=== PATIENT | male | born 1950 | race African-American/Black ===

== ENCOUNTER 2017-12-28 09:07 | Outpatient (CLI) | payer MEDICARE, MEDICAID ==
--- NOTE | 2017-12-28 13:12 | MRI ---
MRI LUMBAR SPINE WITHOUT CONTRAST: Comparison: None. History: Chronic back pain, bilateral leg pain for a long time. Technique: Multiplanar, multisequence MRI images were obtained of the lumbar spine without contrast. FINDINGS: The vertebral bodies demonstrate normal height and alignment without fracture or subluxation. Endplat e degenerative changes are seen surrounding the L5-S1 intervertebral disc. This disc is desiccated an d decreased in height. The other discs are well hydrated and normal in height. The conus medullaris terminates normally at L1. The prevertebral and paraspinal soft tissues are unre markable. T12-L1 through L3-4: Unremarkable. L4-5: No significant disc bulge or occlusion. Moderate bilateral posterior facet arthrosis. No centra l canal stenosis. Mild bilateral neural foraminal stenosis. L5-S1: A large disc osteophyte complex is seen. Mild bilateral posterior facet arthrosis. Moderate ce ntral canal stenosis. Severe bilateral neural foraminal stenosis. IMPRESSION: Degenerative changes of the lower lumbosacral spine as above. POS: [facility]
== END 2017-12-28 09:08 | disposition home or self-care (01) ==
LOC: MRI 09:07
PROVIDERS: ATTEND Family Medicine
DX: M54.9 Dorsalgia, unspecified (principal); M47.897 Other spondylosis, lumbosacral region
CPT/HCPCS: 72148

== ENCOUNTER 2019-07-14 16:14 | Inpatient (IN) | payer MEDICARE, OTHER ==
[~2019-07-14 16:14] MED LIST: Lidocaine 1% PF 5 ML VIAL ONE; PHENYLEPHRINE-NS 100 MCG/ML 10 ML SYRINGE ONE; PROPOFOL 200 MG/20 ML VIAL ONE; Rocuronium Bromide 10 MG/ML (10ML VIAL) ONE; Succinylcholine Chloride 20 MG/ML 10 ml SYRINGE FS ONE; Vecuronium 10 MG VIAL ONE
[2019-07-14] MEDS ORDERED: Morphine 4 MG/ML VIAL ONE (16:49)
[2019-07-14] MEDS ORDERED: Ondansetron PF 4 MG/2 ML Vial ONE (16:57)
[2019-07-14] MEDS ORDERED: Midazolam HCl 5 mg/ml Vial ONE (17:16)
[2019-07-14] MEDS ORDERED: Midazolam HCl 2 mg/2 ml Vial ONE ×3 (17:17→23:44)
[2019-07-14 18:36] LABS: INR-International Normal Ratio 1.1; PTT 30.9 SEC (22.9-36.1); Prothrombin Time 13.8 SEC (12.0-14.7)
[2019-07-14] MEDS ORDERED: Fentanyl 100 MCG/2 ML VIAL ONE (18:48)
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
[2019-07-14] MEDS ORDERED: Sodium Chloride 0.9% 100 ML ONE (19:13)
[2019-07-14] MEDS ORDERED: cefOXitin 2 GM VIAL ONE (19:13)
[2019-07-15] MEDS ORDERED: Dextrose 5% in Water 1,000 ML IV PRN (00:24)
[2019-07-15] MEDS ORDERED: Ondansetron PF 4 MG/2 ML Vial IVP PRN (00:24)
[2019-07-15] MEDS ORDERED: HumaLOG 300 UNITS/3 ML VIAL SC PRN (00:24)
[2019-07-15] MEDS ORDERED: Dextrose 50% Abboject 50 ML SYRINGE SLOW IVP PRN (00:24)
[2019-07-15] MEDS ORDERED: Ventilator Sedation Protocol 1 EACH FS ONE (00:30)
[2019-07-15] MEDS ORDERED: Propofol 1,000 MG/100 ML VIAL IV ONE (00:31)
[2019-07-15] MEDS ORDERED: Propofol BOLUS 1,000 MG/100 ML VIAL IV PRN (00:33)
[2019-07-15] MEDS ORDERED: Lorazepam 2 MG/ML VIAL SLOW IVP PRN (00:33)
[2019-07-15] MEDS ORDERED: Fentanyl BOLUS 250 ML IVPB PRN (00:33)
[2019-07-15] MEDS ORDERED: Morphine 2 MG/ML SYRINGE SLOW IVP PRN (00:33)
[2019-07-15] MEDS ORDERED: DISCONTINUE PREVIOUS NARCOTIC PAIN MEDICATIONS AND BENZODIAZEPINES FS SCH (00:33)
[2019-07-15 00:36] LABS: Actual Bicarbonate (HCO3a) 24.7 mEq/L (22-28); Base Excess (BEa) 0.4 mEq/L (-2.0 to +3.0); CO2 Tension 39.2 mmHg (35.0-45.0); Calcium, Ionized 1.07 mmol/L (1.12-1.30); Carboxyhemoglobin (COHb) 1.9 gm% (0.0-3.0); Hemoglobin (Hb) 14.9 g/dL (14.0-18.0); Potassium - ABG Lab 5.25 mmol/L (3.70-5.30); pH, Arterial 7.42 (7.35-7.45)
[2019-07-15 00:38] LABS: Puncture Site LRA
[2019-07-15] MEDS ORDERED: Fentanyl 100 MCG/2 ML VIAL ONE (00:55)
[2019-07-15] MEDS ORDERED: Fentanyl 100 MCG/2 ML VIAL SLOW IVP SCH (01:00)
[2019-07-15] MEDS: fentaNYL Citrate/PF 2,000 MCG in Sodium Chloride 0.9% 60 ML IV SCH ×2 (01:10→17:50)
[2019-07-15] MEDS: Propofol 1,000 MG/100 ML VIAL IV PRN ×4 (01:11→21:26)
[2019-07-15] MEDS: Lactated Ringer's 1,000 ML IV SCH ×3 (01:18→16:30)
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
[2019-07-15 06:11] LABS: Band 24 % (5-11); Hemoglobin 13.4 g/dL (14.0-18.0); Lymphocytes 18 % (21-51); MDiff Complete? YES; Mean Corpuscular HGB CONC 33.9 g/dL (32.0-36.0); Mean Corpuscular Volume 97.4 fL (78.0-98.0); Mean Platelet Volume 7.3 fL (7.4-10.4); Monocytes 11 % (0-10); Neutrophil 47 % (42-75); Platelet Count 185 thou/uL (130-400); Platelet Morphology Comment Appears Adequate; RBC Distribution Width 13.1 % (11.5-14.5); RBC Morphology Normal; Red Blood Cell (RBC) Count 4.06 mill/uL (4.70-6.10)
[2019-07-15 06:12] LABS: Phosphorus 3.7 mg/dL (2.3-4.7)
[2019-07-15 06:13] LABS: Anion Gap 12 mmol/L (10-20); BUN (Urea Nitrogen) 25 mg/dL (8.4-25.7); Calc. Creatinine Clearance 89 mL/min (70-130); Calcium 8.4 mg/dL (7.8-10.44); Carbon Dioxide 23 mmol/L (23-31); Chloride 103 mmol/L (98-107); Estimated GFR-MDRD 68; Glucose 155 mg/dL (80-115); Magnesium 1.6 mg/dL (1.6-2.6); Potassium 4.8 mmol/L (3.5-5.1); Sodium 133 mmol/L (136-145)
[2019-07-15 08:06] LABS: Actual Bicarbonate (HCO3a) 22.4 mEq/L (22-28); Base Excess (BEa) -1.3 mEq/L (-2.0 to +3.0); CO2 Tension 34.4 mmHg (35.0-45.0); Calcium, Ionized 1.03 mmol/L (1.12-1.30); Carboxyhemoglobin (COHb) 1.6 gm% (0.0-3.0); Hemoglobin (Hb) 13.8 g/dL (14.0-18.0); O2 Tension (PaO2) 81.6 mmHg (> 80.0); Potassium - ABG Lab 4.56 mmol/L (3.70-5.30); Puncture Site RRA; pH, Arterial 7.43 (7.35-7.45)
[2019-07-15] MEDS: Enoxaparin Sodium 40 MG/0.4 ML SYRINGE SC SCH (08:43)
--- NOTE | 2019-07-15 08:48 | RAD ---
XR Abdomen 1 View/KUB History: Status post exploratory laparotomy. Comparison: CT prior day Findings: An enteric tube and a weighted feeding tube are both in place with tip near the gastric ant rum. Multiple new left midline surgical torsten. Drains project over the left hemiabdomen. Impression: Both the enteric tube and weighted feeding tube tips project over the gastric antrum.
--- NOTE | 2019-07-15 08:48 | RAD ---
XR Chest 1 View Portable History: Status post exploratory laparotomy Comparison: Radiograph prior day Findings: Patient is intubated with endotracheal tube tip at the level of the clavicles. Lungs are hy poinflated with vascular crowding and scattered atelectasis. No pneumothorax. Heart size is enlarged. Impression: Endotracheal tube tip at the level of the clavicles with scattered atelectatic changes.
[2019-07-15] MEDS: Pantoprazole 40 MG VIAL IVP SCH (09:21)
[2019-07-15] MEDS: cefOXitin 2 GM in Sodium Chloride 0.9% 100 ML IVPB SCH ×2 (09:21→17:58)
--- NOTE | 2019-07-15 16:25 | PRG ---
DATE OF SERVICE: 07/15/2019 SUBJECTIVE: Mr. Urban is a 69-year-old man, who is postoperative day #1, status post exploratory laparotomy, extensive adhesiolysis, and total abdominal wall reconstruction for an incarcerated ventral and incisional hernia with acute small-bowel obstruction. The patient remains on mechanical ventilator support. He required large volume fluid resuscitation yesterday. He is on no vasopressor or inotropic support. Urinary output is improved now to over 60 mL/h. OBJECTIVE: VITAL SIGNS: Blood pressure 122/89, pulse is 108, respiratory rate is 18, temperature is 100.9 degrees Fahrenheit, oxygen saturation is 97% on FiO2 of 40%. HEENT: Pupils are equal, round, and reactive to light bilaterally. HEART: Reveals regular rate with sinus tachycardia. No murmurs or gallops auscultated. LUNGS: Reveal bibasilar rhonchi. Breathing, regular and nonlabored. ABDOMEN: Soft and moderately distended. Incision is intact, clean, and dry. Two subcutaneous Luke-Woodruff drains return scant serous fluid. NEUROLOGIC: Reveals no focal deficits present. LABORATORY FINDINGS: Today include CBC with 7000 white blood cells, hemoglobin and hematocrit of 13.4 and 39.6 respectively. Platelet count is 185,000. Differential counts as follows; 47 segmented neutrophils, 24 bands, 18 lymphocytes, 11 monocytes. Arterial blood gas; pH 7.43, pCO2 is 34.4, PO2 is 82, base excess is -1.3. Metabolic profile; sodium 133, potassium 4.8, chloride is 103, bicarb is 23, BUN 25, creatinine is 1.27, glucose is 155, phosphorus is 3.7, magnesium is 1.6. IMPRESSION: 1. Acute small-bowel obstruction secondary to acute incarcerated ventral incisional hernia postop day #1, status post exploratory laparotomy, extensive adhesiolysis, and total abdominal wall reconstruction. 2. Acute respiratory failure. 3. Acute hypomagnesemia. PLAN: 1. Correct abnormal electrolytes. 2. We will initiate chemical VTE prophylaxis. 3. Continue to wean FiO2 as tolerated. 4. We will maintain the patient, however, mechanical ventilator support as I expect some fluid shifts given the large volume fluid resuscitation yesterday. Above findings and plan discussed with the patient and the same will be communicated to the family upon arrival. TIME SPENT: Total critical care time is 45 minutes. Job ID: [id number]
[2019-07-15] MEDS ORDERED: Prevnar 13-Val Conj/PF 0.5 ML SYRINGE IM ONE (21:00)
--- NOTE | 2019-07-15 23:34 | PRG ---
DATE OF SERVICE: 07/15/2019 SUBJECTIVE: Mr. Urban is 69-year-old man with status post exploratory laparotomy, extensive adhesiolysis, and total abdominal wall reconstruction for incarcerated ventral and incisional hernia with acute small-bowel obstruction. The patient is to remain on mechanical ventilation support. Patient's urine output is marginal, 35 to 40. OBJECTIVE: VITAL SIGNS: Stable except he is tachy most of the time. He got fluid resuscitation and albumin transfusion today. LUNGS: Have scattered rales bilaterally. HEART: Regular rate and rhythm. ABDOMEN: Soft, moderately distended. Incision intact, clean and dry. DONOVAN drain, scant serous fluid. NEUROLOGIC: No focal neurology deficits. PLAN: Will be to continue supportive care. Continue to correct abnormal electrolytes. Continue DVT and gastritis prophylaxis. Job ID: [id number]
[2019-07-16] MEDS: Lactated Ringer's 1,000 ML IV SCH (04:06)
[2019-07-16] MEDS: Propofol 1,000 MG/100 ML VIAL IV PRN ×3 (04:06→17:43)
[2019-07-16 07:59] LABS: Hemoglobin 11.7 g/dL (14.0-18.0); Mean Corpuscular HGB CONC 33.6 g/dL (32.0-36.0); Mean Corpuscular Hemoglobin 32.7 pg (27.0-31.0); Mean Corpuscular Volume 97.2 fL (78.0-98.0); Mean Platelet Volume 7.3 fL (7.4-10.4); Platelet Count 158 thou/uL (130-400); RBC Distribution Width 13.1 % (11.5-14.5); Red Blood Cell (RBC) Count 3.58 mill/uL (4.70-6.10)
[2019-07-16] MEDS: Enoxaparin Sodium 40 MG/0.4 ML SYRINGE SC SCH (08:07)
[2019-07-16] MEDS: Pantoprazole 40 MG VIAL IVP SCH (08:07)
[2019-07-16 08:15] LABS: Anion Gap 13 mmol/L (10-20); BUN (Urea Nitrogen) 30 mg/dL (8.4-25.7); Calc. Creatinine Clearance 71 mL/min (70-130); Calcium 7.9 mg/dL (7.8-10.44); Carbon Dioxide 22 mmol/L (23-31); Chloride 103 mmol/L (98-107); Estimated GFR-MDRD 49; Glucose 128 mg/dL (80-115); Magnesium 1.8 mg/dL (1.6-2.6); Phosphorus 2.8 mg/dL (2.3-4.7); Potassium 4.5 mmol/L (3.5-5.1); Sodium 133 mmol/L (136-145)
[2019-07-16 08:31] LABS: Band 9 % (5-11); Eosinophils 2 % (0-10); Lymphocytes 29 % (21-51); MDiff Complete? YES; Metamyelocyte 2 % (0-0); Monocytes 18 % (0-10); Neutrophil 40 % (42-75); Platelet Morphology Comment Appears Adequate; Vacuoles SLIGHT; White Blood Cell (WBC) Count 9.2 thou/uL (4.8-10.8)
[2019-07-16] MEDS: Sodium Bicarbonate 150 MEQ in Dextrose 5% in Water 1,000 ML IV SCH (09:09)
[2019-07-16] MEDS ORDERED: Sterile Water 10 ML ONE (09:49)
[2019-07-16] MEDS ORDERED: Vecuronium 10 MG VIAL ONE (09:49)
--- NOTE | 2019-07-16 10:23 | RAD ---
EXAM: Portable chest PROVIDED CLINICAL HISTORY: Respiratory insufficiency COMPARISON: 07/15/2019 FINDINGS: Interval placement of left subclavian central line, tip of which projects in the expected location of cavoatrial junction. Cardiac and mediastinal silhouette is unchanged in appearance. Enteric catheter and endotracheal tube are redemonstrated. Bibasilar patchy parenchymal opacities may reflect subsegmental atelectasis or infiltrate. There is no evidence for pneumothorax. IMPRESSION: As above.
[2019-07-16] MEDS: fentaNYL Citrate/PF 2,000 MCG in Sodium Chloride 0.9% 60 ML IV SCH (11:17)
[2019-07-16 11:41] LABS: Actual Bicarbonate (HCO3a) 24.3 mEq/L (22-28); Base Excess (BEa) -0.1 mEq/L (-2.0 to +3.0); CO2 Tension 38.7 mmHg (35.0-45.0); Calcium, Ionized 0.94 mmol/L (1.12-1.30); Carboxyhemoglobin (COHb) 0.8 gm% (0.0-3.0); Hemoglobin (Hb) 11.1 g/dL (14.0-18.0); O2 Tension (PaO2) 65.1 mmHg (> 80.0); Potassium - ABG Lab 4.05 mmol/L (3.70-5.30); pH, Arterial 7.42 (7.35-7.45)
[2019-07-16 11:42] LABS: ALV-art Gradient 243.025 (0-20); Puncture Site RRA
--- NOTE | 2019-07-16 16:14 | PRG ---
DATE OF SERVICE: 07/16/2019 SUBJECTIVE: Mr. Urban is a 69-year-old man, who is postoperative day #2, status post exploratory laparotomy, extensive adhesiolysis, and anterior abdominal wall reconstruction. The patient remains on mechanical ventilator support. Overnight urinary output has been low as well as the blood pressure. He remains on no vasopressor or inotropic support. Fluid boluses have been given, which improved both blood pressure and urinary output. OBJECTIVE: VITAL SIGNS: This morning, blood pressure 93/67, pulse 115, respiratory rate is 37, oxygen saturation is 95% on FiO2 of 50%, maximum temperature in last 24 hours is 100.9 degrees Fahrenheit. HEART: Regular rate, sinus tachycardia. No murmurs or gallops auscultated. LUNGS: Bibasilar rhonchi. Breathing regular and nonlabored. ABDOMEN: Soft and moderately distended. Bowel sounds in all 4 quadrants hypoactive. Incision remains intact, clean, dry. Subcutaneous Luke-Woodruff drain returns scant serous fluid. NEUROLOGIC: No focal deficits present. LABORATORY FINDINGS: Today CBC with 9200 white blood cells, hemoglobin and hematocrit 11.7 and 34.8 respectively, platelet count is 158,000. Differential counts as follows 40% segmented neutrophils, 9 bands, 29 lymphocytes, 18 monocytes, and 2 eosinophils. Metabolic profile; sodium 133, potassium 4.5, chloride is 103, bicarb is 22, BUN is 30, creatinine is 1.69, glucose 128. Magnesium 1.8 and phosphorus 2.8. Serum cortisol level is 22.10. IMPRESSION: 1. Postoperative day #2, status post exploratory laparotomy, extensive adhesiolysis, and total abdominal wall reconstruction. 2. Acute kidney injury likely secondary to relative hypovolemia due to third spacing. 3. Acute hypomagnesemia. PLAN: 1. The patient will be started on a bicarbonate infusion, increasing total fluid intake while monitoring the urinary output. 2. Correct abnormal electrolytes. 3. Continue full mechanical ventilator support. In fact, we will place the patient on pressure control ventilation to use low tidal volume. 4. Above findings and plan will be discussed with the patient's family upon arrival. Total critical care time is 45 minutes. Job ID: [id number]
[2019-07-16] MEDS ORDERED: Acetaminophen 1,000 MG in Premix Bag 1 BAG IVPB SCH (20:45)
--- NOTE | 2019-07-17 00:53 | PRG ---
DATE OF SERVICE: 07/17/2019 SUBJECTIVE: Mr. Urban is a 69-year-old man, who is on postoperative day 2 status post exploratory laparotomy, extensive adhesiolysis, and anterior abdominal wall reconstruction. The patient remained on mechanical ventilation support. His vital signs are stable. Urine output is adequate from 55 to 60 an hour. Gastric drainage is 35 an hour. DONOVAN drain is around 10 an hour. OBJECTIVE: GENERAL: The patient is lying down in bed under full ventilator support. He is responsive to voice commands. He can wiggle his toe and hand. VITAL SIGNS: Stable except he is still tachy with heart rate 110, blood pressure 114/60, respiratory rate is 20, and temperature is 99. LUNGS: Scattered rales. HEART: Regular rate and rhythm. ABDOMEN: Soft, moderately distended. Bowel sounds hyperactive. Incisions remain clean, dry, and intact. PLAN: Will be to continue supportive care. Continue to correct abnormal electrolytes. Continue full mechanical ventilation support. Dr. Genao plans to place the patient on pressure control ventilation to low tidal volume. Job ID: [id number]
[2019-07-17] MEDS: Lactated Ringer's 1,000 ML IV SCH ×2 (02:51→07:00)
[2019-07-17] MEDS: Sodium Bicarbonate 150 MEQ in Dextrose 5% in Water 1,000 ML IV SCH ×3 (02:59→20:47)
[2019-07-17] MEDS: Propofol 1,000 MG/100 ML VIAL IV PRN ×3 (04:58→18:48)
[2019-07-17 05:04] LABS: Anion Gap 12 mmol/L (10-20); BUN (Urea Nitrogen) 29 mg/dL (8.4-25.7); Calc. Creatinine Clearance 75 mL/min (70-130); Calcium 7.8 mg/dL (7.8-10.44); Carbon Dioxide 28 mmol/L (23-31); Chloride 98 mmol/L (98-107); Estimated GFR-MDRD 52; Glucose 129 mg/dL (80-115); Magnesium 1.8 mg/dL (1.6-2.6); Phosphorus 2.3 mg/dL (2.3-4.7); Potassium 3.5 mmol/L (3.5-5.1); Sodium 134 mmol/L (136-145)
[2019-07-17 05:23] LABS: Band 20 % (5-11); Hemoglobin 9.7 g/dL (14.0-18.0); Lymphocytes 22 % (21-51); MDiff Complete? YES; Mean Corpuscular HGB CONC 32.7 g/dL (32.0-36.0); Mean Corpuscular Hemoglobin 31.8 pg (27.0-31.0); Mean Corpuscular Volume 97.5 fL (78.0-98.0); Mean Platelet Volume 2.8 fL (7.4-10.4); Monocytes 15 % (0-10); Neutrophil 43 % (42-75); Platelet Count 134 thou/uL (130-400); Platelet Morphology Comment Appears Adequate; RBC Distribution Width 12.7 % (11.5-14.5); Red Blood Cell (RBC) Count 3.03 mill/uL (4.70-6.10); White Blood Cell (WBC) Count 7.2 thou/uL (4.8-10.8)
[2019-07-17] MEDS ORDERED: Furosemide 40 MG/4 ML VIAL ONE (07:36)
[2019-07-17] MEDS: Pantoprazole 40 MG VIAL IVP SCH (07:52)
[2019-07-17] MEDS: Enoxaparin Sodium 40 MG/0.4 ML SYRINGE SC SCH (07:52)
[2019-07-17] MEDS ORDERED: Furosemide 40 MG/4 ML VIAL SLOW IVP SCH (08:15)
[2019-07-17] MEDS ORDERED: NS 0.9% w/ 20 MEQ KCL 1,000 ML IV SCH (08:15)
--- NOTE | 2019-07-17 12:08 | PRG ---
DATE OF SERVICE: 07/17/2019 SUBJECTIVE: Humberto Urban is a 69-year-old male patient, seen in the ICU for Dr. Genao. The patient is status post 07/14/2019, laparotomy, adhesiolysis, mesh repair of incisional hernia. He is on the ventilator. He is up in a chair at this point on the ventilator. Gastric drainage 100 mL per 24 hours, left DONOVAN drain 112, right 270, serosanguineous output 1870 mL for 24 hours. LABORATORY DATA: White count 7, hemoglobin 9.7 this morning. Basic metabolic profile normal. BUN 29 and creatinine 1.6. OBJECTIVE: LUNGS: Clear to auscultation. Sedated on the ventilator. HEENT: Eyes open. CARDIAC: Regular rate and rhythm. ABDOMEN: Soft plus bowel sounds. EXTREMITIES: Unremarkable. ASSESSMENT AND PLAN: 1. Respiratory failure on the ventilator. Continue ventilator today. Hopefully, we can wean tomorrow. 2. Postoperative extensive adhesiolysis. Continue NG tube until better bowel function. Job ID: [id number]
[2019-07-17] MEDS: fentaNYL Citrate/PF 2,000 MCG in Sodium Chloride 0.9% 60 ML IV SCH (13:05)
--- NOTE | 2019-07-18 00:04 | PRG ---
DATE OF SERVICE: 07/17/2019 SUBJECTIVE: Mr. Urban is a 69-year-old male, who is postop day 3, status post exploratory laparotomy. The patient remained in mechanical ventilation support. The patient is more alert and awake. His vitals are stable. His urine output is excellent, 60 to 80 an hour. Gastric drainage around 25 an hour and DONOVAN drain is limited. OBJECTIVE: GENERAL: The patient is lying down in bed under full ventilation support. He is responsive to voice commands. He can wiggle his toe and hand. VITAL SIGNS: Stable. His heart rate is improved in the 90 range. Blood pressure is 110 systolic. LUNGS: Scattered rales bilateral. HEART: Regular rate and rhythm. ABDOMEN: Soft, moderately distended. Bladder pressure less than 20, around 16 to 17. Incision remained clean, dry, and intact. PLAN: Will be to continue supportive care. Continue to correct abnormal electrolytes. Continue full mechanical ventilation support overnight. Hopefully, we can wean ventilation tomorrow. Job ID: [id number]
[2019-07-18] MEDS: Propofol 1,000 MG/100 ML VIAL IV PRN ×3 (06:32→16:08)
[2019-07-18 07:12] LABS: Actual Bicarbonate (HCO3a) 24.5 mEq/L (22-28); Base Excess (BEa) 0.6 mEq/L (-2.0 to +3.0); CO2 Tension 36.6 mmHg (35.0-45.0); Calcium, Ionized 1.06 mmol/L (1.12-1.30); Carboxyhemoglobin (COHb) 0.2 gm% (0.0-3.0); Hemoglobin (Hb) 10.9 g/dL (14.0-18.0); O2 Tension (PaO2) 85.8 mmHg (> 80.0); Potassium - ABG Lab 3.35 mmol/L (3.70-5.30); pH, Arterial 7.44 (7.35-7.45)
[2019-07-18 07:14] LABS: Puncture Site L.R.
[2019-07-18] MEDS ORDERED: Calcium Chloride 1 GM/10 ML Abboject SYRINGE IVP SCH (07:30)
[2019-07-18] MEDS ORDERED: Calcium Chloride 13.6 MEQ in Sodium Chloride 0.9% 100 ML IVPB SCH (07:30)
[2019-07-18 07:37] LABS: Hemoglobin 10.3 g/dL (14.0-18.0); Mean Corpuscular HGB CONC 34.5 g/dL (32.0-36.0); Mean Corpuscular Hemoglobin 33.6 pg (27.0-31.0); Mean Corpuscular Volume 97.3 fL (78.0-98.0); Mean Platelet Volume 6.7 fL (7.4-10.4); Platelet Count 184 thou/uL (130-400); RBC Distribution Width 12.6 % (11.5-14.5); Red Blood Cell (RBC) Count 3.08 mill/uL (4.70-6.10); White Blood Cell (WBC) Count 7.7 thou/uL (4.8-10.8)
[2019-07-18 07:56] LABS: Band 10 % (5-11); Eosinophils 4 % (0-10); Lymphocytes 30 % (21-51); MDiff Complete? YES; Monocytes 11 % (0-10); Neutrophil 44 % (42-75); Platelet Morphology Comment Appears Adequate; Polychromasia SLIGHT = 2-3 cells (100X) (0-2/hpf)
[2019-07-18 08:03] LABS: Anion Gap 13 mmol/L (10-20); BUN (Urea Nitrogen) 27 mg/dL (8.4-25.7); Calc. Creatinine Clearance 94 mL/min (70-130); Carbon Dioxide 25 mmol/L (23-31); Chloride 100 mmol/L (98-107); Estimated GFR-MDRD 68; Glucose 108 mg/dL (80-115); Magnesium 2.1 mg/dL (1.6-2.6); Phosphorus 2.2 mg/dL (2.3-4.7); Potassium 3.5 mmol/L (3.5-5.1); Sodium 134 mmol/L (136-145)
[2019-07-18] MEDS: Enoxaparin Sodium 40 MG/0.4 ML SYRINGE SC SCH (08:03)
[2019-07-18] MEDS: Pantoprazole 40 MG VIAL IVP SCH (08:03)
--- NOTE | 2019-07-18 08:32 | RAD ---
SINGLE VIEW CHEST: Date: 07/18/19 COMPARISON: 07/16/19. HISTORY: Respiratory failure. FINDINGS: Single view of the chest shows an enlarged but stable cardiomediastinal silhouette. Endotracheal tube is unchanged in position. There is a central venous catheter with its tip in the superior vena cava. No pneumothorax is seen. A Dobbhoff tube courses off the inferior aspect of the film. A NG tube is p artially visualized. IMPRESSION: 1. Appropriate position of lines and tubes. 2. Stable cardiomegaly. POS: [facility]
[2019-07-18] MEDS ORDERED: Potassium Phosphate 30 MMOL in Sodium Chloride 0.9% 100 ML IVPB SCH (09:30)
[2019-07-18] MEDS: Furosemide 20 MG/2 ML VIAL SLOW IVP SCH ×2 (09:50→16:08)
--- NOTE | 2019-07-18 17:43 | PRG ---
DATE OF SERVICE: 07/18/2019 SUBJECTIVE: Mr. Urban is a 69-year-old man, who is postoperative day #4, status post exploratory laparotomy, adhesiolysis, and total abdominal wall reconstruction for incarcerated ventral hernia with acute small-bowel obstruction. The patient remains on full mechanical ventilator support. He was placed on pressure control ventilation due to high peak airway pressures. Today, the peak airway pressures are acceptable. Oxygen saturation has remained stable over the last 24 to 48 hours. The patient was placed on gentle diuresis and adequate urinary output has been achieved. Trophic feeds are ongoing at 10 mL/h. There is no bowel movement recorded yet. OBJECTIVE: VITAL SIGNS: Today include blood pressure 103/66, pulse is 98, respiratory rate is 18, maximum temperature in last 24 hours is 100 degrees Fahrenheit, and oxygen saturation is 97% on FiO2 of 50%, PEEP of 10. HEENT: Pupils are equal, round, and reactive to light bilaterally. HEART: Reveals regular rate and rhythm. No murmurs or gallops auscultated. LUNGS: Reveal scattered rhonchi. Breathing, regular and nonlabored. ABDOMEN: Soft and moderately distended. Hyperactive bowel sounds auscultated in all 4 quadrants. Subcutaneous Luke-Woodruff drains return scant serous fluids. EXTREMITIES: Reveal 2+ radial and pedal pulses bilaterally. No ankle edema is present. NEUROLOGIC: Reveals no focal deficits present. LABORATORY FINDINGS: Today include a CBC with 7700 white blood cells, hemoglobin and hematocrit are stable at 10.3 and 30.0 respectively. Platelet count is 184,000. Differential counts as follows; 44 segmented neutrophils, 10 bands, 30 lymphocytes, 11 monocytes, 4 eosinophils, and 1 basophil. Arterial blood gas today; pH 7.44, pCO2 is 37, pO2 is 86, oxygen saturation 96%, base excess is 0.6. Ionized calcium is 1.06. Metabolic profile; sodium 134, potassium 3.5, chloride is 100, bicarb is 25, BUN is 27, creatinine is 1.28, glucose is 108, magnesium is 2.1, and phosphorus is 2.2. IMPRESSION: 1. Postop day #4, status post exploratory laparotomy, extensive adhesiolysis, and total abdominal wall reconstruction. 2. Resolving acute hypoxemic respiratory failure. 3. Acute hypocalcemia. 4. Acute hypokalemia. 5. Acute hypophosphatemia. PLAN: 1. Correct abnormal electrolytes. 2. Continue with full mechanical ventilator support. However, the patient will be placed on conventional mechanical ventilator support with SIMV with pressure support. 3. We will then wean PEEP as tolerated. Above findings and plan discussed with the patient's at bedside. She indicates understanding information given. I have answered her questions. Total critical care time is 50 minutes. Job ID: [id number]
[2019-07-18] MEDS ORDERED: Hydrocortisone Sod Succ/PF 100 mg/2 ml Vial ONE (18:13)
[2019-07-18] MEDS ORDERED: Hydrocortisone Sod Succ/PF 250 mg/2 ml Vial SLOW IVP SCH (18:15)
[2019-07-18] MEDS ORDERED: Hydrocortisone Sod Succ/PF 100 mg/2 ml Vial IVP SCH (18:30)
[2019-07-18] MEDS: fentaNYL Citrate/PF 2,000 MCG in Sodium Chloride 0.9% 60 ML IV SCH (22:31)
--- NOTE | 2019-07-18 23:24 | PRG ---
DATE OF SERVICE: 07/18/2019 SUBJECTIVE: This is a 69-year-old gentleman who is postop day #4 status post exploratory laparotomy, adhesiolysis, and total abdominal wall reconstruction for incarcerated ventral hernia with acute small-bowel obstruction. The patient remains on full mechanical ventilator support. The patient is awake, alert and follows simple commands. The patient continues to have good urinary output. The patient continues to tolerate trophic feeds. The patient has not had a bowel movement. OBJECTIVE: VITAL SIGNS: Stable, remains afebrile. GENERAL: The patient awake, alert, follows simple commands on full ventilator support. HEART: Regular rate, regular rhythm, no murmurs. RESPIRATORY: Scattered rhonchi, equal chest rise and fall. ABDOMEN: Moderately distended, hyperactive bowel sounds in all four quadrants. Abdomen is soft, tender to palpation. DONOVAN drains returned scant serous fluid. EXTREMITIES: No pedal edema. Positive distal pulses in all extremities 2+. Mild edema to both bilateral hands. IMPRESSION: 1. Postop day #4 status post exploratory laparotomy, extensive adhesiolysis and total abdominal wall reconstruction. 2. Resolving acute hypoxemic respiratory failure. 3. Acute hypocalcemia. 4. Acute hypokalemia. 5. Acute hypophosphatemia. PLAN: Continue full mechanical ventilator support. Continue to monitor electrolytes and replace as needed. We will continue to monitor the patient's urinary output. Job ID: [id number]
[2019-07-19] MEDS: Hydrocortisone Sod Succ/PF 100 mg/2 ml Vial IVP SCH ×5 (00:22→23:24)
[2019-07-19 06:03] LABS: Anion Gap 10 mmol/L (10-20); BUN (Urea Nitrogen) 32 mg/dL (8.4-25.7); Calc. Creatinine Clearance 103 mL/min (70-130); Calcium 8.4 mg/dL (7.8-10.44); Carbon Dioxide 29 mmol/L (23-31); Chloride 100 mmol/L (98-107); Estimated GFR-MDRD 75; Glucose 132 mg/dL (80-115); Magnesium 2.1 mg/dL (1.6-2.6); Phosphorus 3.4 mg/dL (2.3-4.7); Potassium 3.4 mmol/L (3.5-5.1); Sodium 136 mmol/L (136-145)
[2019-07-19] MEDS ORDERED: Potassium Phosphate 30 MMOL in Sodium Chloride 0.9% 250 ML 250 ML IVPB SCH (06:45)
[2019-07-19 07:18] LABS: Actual Bicarbonate (HCO3a) 25.6 mEq/L (22-28); Base Excess (BEa) 2.7 mEq/L (-2.0 to +3.0); CO2 Tension 33.3 mmHg (35.0-45.0); Carboxyhemoglobin (COHb) 0.3 gm% (0.0-3.0); Hemoglobin (Hb) 10.6 g/dL (14.0-18.0); O2 Tension (PaO2) 81.9 mmHg (> 80.0); Potassium - ABG Lab 3.31 mmol/L (3.70-5.30)
[2019-07-19 07:24] LABS: ALV-art Gradient 232.975 (0-20); Puncture Site L.R.
[2019-07-19] MEDS: Enoxaparin Sodium 40 MG/0.4 ML SYRINGE SC SCH (07:31)
[2019-07-19] MEDS: Pantoprazole 40 MG VIAL IVP SCH (07:32)
--- NOTE | 2019-07-19 07:50 | RAD ---
EXAM: CHEST ONE VIEW HISTORY: Intubation. Follow-up evaluation. COMPARISON: 07/18/2019. FINDINGS: Endotracheal tube, left subclavian central venous catheter, and Dobbhoff feeding tube remain in place and unchanged in position. Nasogastric tube is noted in place, but not well visualized. The cardiac silhouette is magnified by shallow depth inspiration and portable technique. There is questio n of a small left pleural effusion, but this may be related to overlying soft tissue density. There is accentuation of the bronchovascular markings due to shallow depth of inspiration and portable tech nique. Chest is overall stable when compared to the prior exam. IMPRESSION: Stable chest with lines and tubes remaining in place. The Dobbhoff feeding tube is coiled overlying t he left upper quadrant. The tip is not visualized.
[2019-07-19] MEDS ORDERED: Calcium Chloride 1 GM/10 ML Abboject SYRINGE IVP SCH (08:45)
[2019-07-19] MEDS ORDERED: Calcium Chloride 13.6 MEQ in Sodium Chloride 0.9% 100 ML IVPB SCH (08:45)
[2019-07-19] MEDS ORDERED: traMADol HCl 50 MG TAB PO PRN (10:21)
[2019-07-19] MEDS ORDERED: Polyethylene Glycol 3350 17 GM Packet PO SCH (10:30)
[2019-07-19] MEDS ORDERED: Senokot 8.6 MG TAB PO SCH (10:30)
--- NOTE | 2019-07-19 11:29 | PRG ---
DATE OF SERVICE: 07/19/2019 SUBJECTIVE: Mr. Urban is a 69-year-old man. The patient is postoperative day #5, status post exploratory laparotomy, extensive adhesiolysis , and total abdominal wall reconstruction. He has tolerated ventilatory wean overnight. Urinary output has been adequate. He moves all extremities and follows commands. OBJECTIVE: VITAL SIGNS: Today, include blood pressure 145/72, pulse is 88, respiratory rate is 21, and maximum temperature in last 24 hours is 100 degrees Fahrenheit, and oxygen saturation currently is 98% on FiO2 of 40%. HEENT: Pupils are equal, round, and reactive to light bilaterally. NECK: He has no jugular venous distention noted. HEART: Reveals regular rate and rhythm. No murmurs or gallops auscultated. LUNGS: Reveal bibasilar rhonchi. Breathing regular and nonlabored. ABDOMEN: Soft, moderately distended, but nontender to palpation. Bowel sounds in all 4 quadrants appear normoactive. Subcutaneous Luke-Woodruff drain remains in place and returns left with 50 mm and right with 38 mm both of serous fluid over the last 24 hours. EXTREMITIES: Reveal 2+ radial and pedal pulses bilaterally. No ankle edema is present. NEUROLOGIC: Reveals no focal deficits present. LABORATORY FINDINGS: Today include metabolic profile; sodium 136, potassium 3.4 , chloride is 100, bicarb is 29, BUN is 32, creatinine is 1.17, glucose 132, magnesium 2.1, and phosphorus 3.4. IMPRESSIONS: 1. Postoperative day #1 status post exploratory laparotomy, extensive adhesiolysis, intraabdominal wall reconstruction for acute incarcerated ventral incisional hernia with small bowel obstruction. 2. Resolving acute respiratory failure. 3. Acute hypokalemia. 4. Resolved acute kidney injury. PLAN: 1. Correct abnormal electrolytes. 2. The patient is weaned and extubated accordingly and will continue with pulmonary toilet. 3. We will increase tube feeds to 20 mL/ and initiate bowel regimen. 4. We will initiate physical therapy to increase activity as tolerated. Above findings and plan discussed with the patient, who indicates understanding information given. I have answered his questions. Total Critical Care time : 45 minutes Job ID: [id number] MTDD
[2019-07-19] MEDS: Acetaminophen 325 MG TAB PO SCH ×3 (11:43→23:24)
[2019-07-19] MEDS: Tamsulosin HCl 0.4 MG CAP PO SCH (11:43)
[2019-07-19] MEDS: Senokot 8.6 MG TAB PO SCH (20:22)
[2019-07-19] MEDS: traMADol HCl 50 MG TAB PO PRN (20:46)
--- NOTE | 2019-07-19 22:15 | PRG ---
DATE OF SERVICE: 07/19/2019 SUBJECTIVE: This is a 69-year-old gentleman, postop day #5, status post exploratory laparotomy, extensive adhesiolysis and total abdominal wall reconstruction. The patient is on the surgical floor, awake, alert, in no distress. The patient is currently talking on the phone to his family. The patient reports some mild abdominal soreness after he had to suddenly get up to have a bowel movement. The patient reports he has had 2 bowel movements today. The patient continues to have good urinary output. The patient is tolerating a clear liquid diet and continues to have tube feeds at 20 mL an hour. The patient denies any chest pain or shortness of breath. OBJECTIVE: VITAL SIGNS: Stable, remains afebrile. RESPIRATORY: Equal chest rise and fall, bilateral breath sounds clear. ABDOMEN: Soft, distended, nontender to palpation, active bowel sounds. Subcutaneous DONOVAN drains remain in place with return of serous fluid. IMPRESSION: 1. Postoperative day #5, status post exploratory laparotomy, extensive adhesiolysis, intraabdominal wall reconstruction for acute incarcerated ventral incisional hernia with small bowel obstruction. 2. Acute respiratory failure, resolved. 3. Acute hypokalemia. 4. Resolved acute kidney injury. PLAN: 1. Continue to monitor urinary output. 2. Continue tube feeds and bowel regimen. 3. BiPAP at night and as needed. 4. We will have Physical Therapy work with the patient and increase activity as tolerated. The plan has been discussed with the patient and family, who agrees. Job ID: [id number] MTDD
[2019-07-20] MEDS: traMADol HCl 50 MG TAB PO PRN ×4 (03:58→23:08)
[2019-07-20] MEDS: Acetaminophen 325 MG TAB PO SCH ×4 (05:05→23:08)
[2019-07-20] MEDS: Hydrocortisone Sod Succ/PF 100 mg/2 ml Vial IVP SCH ×3 (05:06→20:02)
[2019-07-20 08:48] LABS: Anion Gap 13 mmol/L (10-20); BUN (Urea Nitrogen) 29 mg/dL (8.4-25.7); Calc. Creatinine Clearance 111 mL/min (70-130); Carbon Dioxide 26 mmol/L (23-31); Chloride 102 mmol/L (98-107); Estimated GFR-MDRD 82; Glucose 123 mg/dL (80-115); Magnesium 2.1 mg/dL (1.6-2.6); Potassium 3.4 mmol/L (3.5-5.1); Sodium 138 mmol/L (136-145)
[2019-07-20] MEDS ORDERED: Non-Formulary Item 1 EACH (Lisinopril [Zestril] 40 MG) PO SCH (09:00)
[2019-07-20] MEDS: Tamsulosin HCl 0.4 MG CAP PO SCH (09:27)
[2019-07-20] MEDS: Senokot 8.6 MG TAB PO SCH ×2 (09:27→20:02)
[2019-07-20] MEDS: Lisinopril 20 MG TAB PO SCH (09:27)
[2019-07-20] MEDS: Enoxaparin Sodium 40 MG/0.4 ML SYRINGE SC SCH (09:28)
[2019-07-20] MEDS: Polyethylene Glycol 3350 17 GM Packet PO SCH (09:29)
[2019-07-20] MEDS ORDERED: Potassium Phosphate 30 MMOL in Sodium Chloride 0.9% 100 ML IVPB SCH (10:15)
[2019-07-20] MEDS: Propranolol HCl 20 MG TAB PO SCH ×2 (10:26→20:03)
--- NOTE | 2019-07-20 14:18 | PRG ---
DATE OF SERVICE: 07/20/2019 SUBJECTIVE: The patient was seen this morning during rounds. He had no acute events overnight. He was sitting up at the edge of the bed with nasal cannula oxygen. He reported sleeping well overnight, but was not able to tolerate the BiPAP. He is tolerating his clear liquid diet. Tube feeds are going at 20 an hour. He has been voiding and he had 2 bowel movements in the past 24 hours. DONOVAN drains remain in place. OBJECTIVE: VITAL SIGNS: Temperature 97.7, pulse 69, respirations 20, oxygen saturation 97% on 3 L nasal cannula. GENERAL: Well-appearing elderly male, sitting up at edge of bed with no signs of acute distress. PULMONARY: Equal chest rise and fall. Diminished lung sounds at the bases. No signs of acute respiratory distress. CARDIAC: Regular rate and rhythm. No murmurs, gallops, or rubs. GI: Abdomen is mildly distended, nontender to palpation. Midline abdominal wound is clean, dry, and intact. DONOVAN drains are in place with serosanguineous output. EXTREMITIES: 2+ pulses in all extremities. No significant swelling noted. Gross motor and sensation are intact. NEUROLOGIC: GCS is 15. LABORATORY FINDINGS: Sodium 138, chloride 102, carbon dioxide 26, BUN 29, creatinine 1.08, glucose 123 magnesium 2.1. DIAGNOSTIC FINDINGS: There are no new diagnostic findings to report. ASSESSMENT: 1. Status post operative day #6 for exploratory laparotomy, extensive adhesiolysis, total abdominal wall reconstruction with mesh after an acute incarcerated ventral hernia and acute small-bowel obstruction. 2. Acute kidney injury, resolved. 3. Acute respiratory failure, resolving. 4. Hypophosphatemia and hypokalemia. 5. History of chronic back pain, hypertension, and ventral incisional hernia. PLAN: The patient will be advanced to a regular diet today. Dobhoff will be removed. Continue to work with Physical and Occupational Therapy. Increase activity as well as sitting up in a chair. The patient needs to continue to use his incentive spirometer and do deep breathing and coughing. Potassium and phosphorus will be replaced. We will continue his DONOVAN drains. We will restart his home medications. The patient was discussed with Dr. Genao before this dictation. Job ID: [id number] [facility]
--- NOTE | 2019-07-20 20:59 | PRG ---
DATE OF SERVICE: 07/20/2019 SUBJECTIVE: This is a 69-year-old gentleman, postop day #6, status post exploratory laparotomy, extensive adhesiolysis, and total abdominal wall reconstruction. The patient remains on the surgical floor, awake, alert, in no distress. The patient does report a moderate amount of abdominal pain at this time. The patient states he just got done eating a regular diet for the first time. The patient denies any nausea or vomiting. The patient continues to have bowel movements and continues to pass gas. The patient also has good urinary output at this time. The patient denies any chest pain or shortness of breath. The patient continues to have 2 DONOVAN drains with minimal serous output. OBJECTIVE: VITAL SIGNS: Pulse 80, respirations 18, SpO2 of 98% on 3 L nasal cannula, blood pressure 170/84. GENERAL: The patient is awake, alert, lying in hospital bed, in moderate abdominal pain after eating. PULMONARY: Equal chest rise and fall. Diminished breath sounds in bilateral bases. No wheezing, rales, or rhonchi. CARDIAC: Regular rate and regular rhythm. No murmurs. No pedal edema. GASTROINTESTINAL: Abdomen is mildly distended, nontender to palpation. Active bowel sounds in all quadrants. DONOVAN drains in place with serosanguineous output. Midline abdominal wound with torsten in place and well approximated. Mild oozing to inferior aspect of midline incision. No redness noted. EXTREMITIES: Moves all extremities. A 2+ distal pulses in all extremities. NEUROLOGIC: GCS is 15. IMPRESSION: 1. Postoperative day #6, status post exploratory laparotomy, extensive adhesiolysis, intraabdominal wall reconstruction for acute incarcerated ventral incisional hernia with small bowel obstruction. 2. Acute respiratory failure, resolved. 3. Resolved acute kidney injury. 4. Hypophosphatemia and hypokalemia. PLAN: We will place the patient back on a full liquid diet since the patient reports abdominal pain after eating a regular diet for dinner. We will have the nurse clean the patient's incision and place a bandage over the site with oozing. We will continue to have the patient use his incentive spirometer and do deep breathing and coughing. We will continue serial abdominal exams. We will continue to monitor urinary output. The plan was discussed with the patient, who agrees. Job ID: [id number]
[2019-07-21] MEDS ORDERED: Morphine 2 MG/ML SYRINGE SLOW IVP SCH (04:15)
[2019-07-21] MEDS: traMADol HCl 50 MG TAB PO PRN ×2 (05:10→09:24)
[2019-07-21] MEDS: Acetaminophen 325 MG TAB PO SCH ×4 (05:10→23:10)
[2019-07-21 06:02] LABS: Anion Gap 9 mmol/L (10-20); BUN (Urea Nitrogen) 21 mg/dL (8.4-25.7); Calc. Creatinine Clearance 150 mL/min (70-130); Calcium 7.9 mg/dL (7.8-10.44); Carbon Dioxide 26 mmol/L (23-31); Chloride 103 mmol/L (98-107); Estimated GFR-MDRD Greater than 90; Glucose 94 mg/dL (80-115); Magnesium 1.8 mg/dL (1.6-2.6); Phosphorus 2.6 mg/dL (2.3-4.7); Sodium 135 mmol/L (136-145)
[2019-07-21 06:11] LABS: Potassium 2.8 mmol/L (3.5-5.1)
[2019-07-21] MEDS ORDERED: Magnesium Sulfate 2 GM in Sodium Chloride 0.9% 100 ML IVPB SCH (06:30)
[2019-07-21] MEDS ORDERED: Potassium Phosphate 30 MMOL, Magnesium Sulfate 2 GM in Sodium Chloride 0.9% 250 ML 250 ML IVPB SCH (06:30)
[2019-07-21 07:21] LABS: #Basophils 0.1 thou/uL (0.0-0.2); #Eosinphils 0.3 thou/uL (0.0-0.7); #Lymphocytes 3.1 thou/uL (1.20-3.40); #Monocytes 1.1 thou/uL (0.11-0.59); %Basophils 1.3 % (0.0-1.0); %Eosinophils 3.1 % (0.0-10.0); %Lymphocytes 32.2 % (21.0-51.0); %Monocytes 11.8 % (0.0-10.0); %Neutrophils 51.6 % (42.0-75.0); Hemoglobin 10.9 g/dL (14.0-18.0); Mean Corpuscular HGB CONC 34.1 g/dL (32.0-36.0); Mean Corpuscular Hemoglobin 33.2 pg (27.0-31.0); Mean Corpuscular Volume 97.4 fL (78.0-98.0); Mean Platelet Volume 7.9 fL (7.4-10.4); Platelet Count 152 thou/uL (130-400); RBC Distribution Width 12.7 % (11.5-14.5); Red Blood Cell (RBC) Count 3.27 mill/uL (4.70-6.10); White Blood Cell (WBC) Count 9.6 thou/uL (4.8-10.8)
[2019-07-21] MEDS: Polyethylene Glycol 3350 17 GM Packet PO SCH (09:16)
[2019-07-21] MEDS: Enoxaparin Sodium 40 MG/0.4 ML SYRINGE SC SCH (09:16)
[2019-07-21] MEDS: Lisinopril 20 MG TAB PO SCH (09:17)
[2019-07-21] MEDS: Hydrocortisone Sod Succ/PF 100 mg/2 ml Vial IVP SCH ×2 (09:17→20:54)
[2019-07-21] MEDS: Senokot 8.6 MG TAB PO SCH ×2 (09:18→20:55)
[2019-07-21] MEDS: Tamsulosin HCl 0.4 MG CAP PO SCH (09:18)
[2019-07-21] MEDS: Propranolol HCl 20 MG TAB PO SCH ×2 (09:24→20:55)
[2019-07-21] MEDS: Nicotine 7 MG PATCH TD SCH (12:10)
[2019-07-21] MEDS ORDERED: Sodium Chloride 0.9% 1,000 ML IV SCH ×2 (13:00)
--- NOTE | 2019-07-21 15:24 | PRG ---
DATE OF SERVICE: 07/21/2019 SUBJECTIVE: The patient was seen this morning, sitting up at edge of bed. Reported some flatus and belching. Reports abdomen does feel a little bit tighter than yesterday. He does not have any respiratory distress and denies any shortness of breath. Reports he has been ambulating with therapy and sitting up in the bed. His effort with his incentive spirometry, however, continues to be poor. He is on room air at the time of my evaluation. OBJECTIVE: VITAL SIGNS: Temperature 97.6, pulse 72, respirations 18, oxygen saturation 95% on 3 L nasal cannula, and blood pressure 163/96. GENERAL: Elderly male, sitting up in bed with no signs of acute distress. PULMONARY: Equal chest rise and fall. Clear breath sounds bilaterally. No signs of acute respiratory distress. CARDIAC: Regular rate and rhythm. No murmurs, gallops, or rubs. GI: Abdomen is distended and more firm than yesterday. Midline abdominal wound is intact. There is a little bit of discharge from the just inferior to the umbilicus, but it appears to be not purulent at this time. EXTREMITIES: 2+ pulses in all extremities. No significant swelling noted. NEUROLOGIC: Gross motor and sensation are intact. GCS is 15. LABORATORY FINDINGS: White count 9.6, hemoglobin 10.9, hematocrit 31.9, and platelets 152. Sodium 135, potassium 2.8, chloride 103, carbon dioxide 26, BUN 21, creatinine 0.80, glucose 94, phosphorus 2.6, and magnesium 1.8. DIAGNOSTIC FINDINGS: There are no new diagnostic findings to report. ASSESSMENT: 1. Status post acute incarcerated ventral hernia with small bowel obstruction, status post repair. 2. Acute kidney injury, resolved. 3. Acute respiratory failure, resolved. 4. Ileus. 5. Hyponatremia. 6. Hypophosphatemia, hypokalemia, and hypomagnesemia. PLAN: The patient was seen by myself and Dr. Ramos again in the afternoon. The patient was made n.p.o. Continue abdominal drains. We will complete KUB. IV fluids will be started at 50 an hour. The patient is also receiving daily IV electrolyte replacements and we want to be very conservative with his fluid management. Continue nebulizers. We will start weaning hydrocortisone. We will continue to taper hydrocortisone tomorrow. Continue p.o. pain medications. We will also complete another KUB tomorrow. Continue daily weights. The patient is still passing gas, but has not had a bowel movement today. We will continue to encourage walking as much as possible and incentive spirometry use. Continue physical therapy. The patient will likely need discharge to acute rehab facility, we have started that process. Job ID: [id number] MTDD
--- NOTE | 2019-07-21 19:32 | RAD ---
KUB: 07/21/19 HISTORY: Ileus. COMPARISON: 07/15/19 study. Postop changes are again noted. Surgical torsten and surgical drain are noted. There is air within tania th small and large bowel without signs of obstruction. It appears that the small bowel distention is less pronounced. IMPRESSION: Postoperative changes without signs of obstruction. POS: [facility]
--- NOTE | 2019-07-21 22:31 | PRG ---
DATE OF SERVICE: 07/21/2019 SUBJECTIVE: The patient remains on the surgical floor, the patient is awake, alert, in no distress, lying in hospital bed. The patient continues to have an NG tube in place to low wall suction. The patient reports feeling better and not having as much abdominal pain since the NG tube was placed. The patient remains n.p.o. at this time. OBJECTIVE: VITAL SIGNS: Stable, remains afebrile. GENERAL: Elderly male, lying in hospital bed, in no acute distress. PULMONARY: Equal chest rise and fall, clear breath sounds bilateral, no respiratory distress. GI: Abdomen is distended, soft, midline abdominal wound intact, dressing to inferior portion of the wound clean, dry, and intact. Active bowel sounds. No rigidity. EXTREMITIES: Moves all extremities, distal pulses intact. NEUROLOGIC: No focal deficits. GCS 15. ASSESSMENT: 1. Status post acute incarcerated ventral hernia with small-bowel obstruction, status post repair. 2. Acute kidney injury, resolved. 3. Acute respiratory failure, resolved. 4. Ileus. 5. Hyponatremia. 6. Hypophosphatemia, hypokalemia, and hypomagnesemia. PLAN: Continue supportive care. Continue abdominal drains. We will keep the patient n.p.o. and continue maintenance fluids. We will continue to wean hydrocortisone. One could continue to encourage the patient to walk as much as possible and use his incentive spirometer. Continue physical and occupational therapy. The plan has been discussed with the patient's family, who agreed. Job ID: [id number]
[2019-07-22] MEDS: Acetaminophen 325 MG TAB PO SCH ×4 (06:00→23:45)
[2019-07-22 06:17] LABS: Anion Gap 9 mmol/L (10-20); BUN (Urea Nitrogen) 21 mg/dL (8.4-25.7); Calc. Creatinine Clearance 141 mL/min (70-130); Calcium 8.4 mg/dL (7.8-10.44); Carbon Dioxide 30 mmol/L (23-31); Chloride 100 mmol/L (98-107); Estimated GFR-MDRD Greater than 90; Glucose 99 mg/dL (80-115); Phosphorus 3.1 mg/dL (2.3-4.7); Sodium 136 mmol/L (136-145)
[2019-07-22 06:24] LABS: Potassium 2.9 mmol/L (3.5-5.1)
[2019-07-22] MEDS ORDERED: Potassium Phosphate 30 MMOL in Sodium Chloride 0.9% 500 ML IVPB SCH (06:45)
--- NOTE | 2019-07-22 09:32 | RAD ---
EXAM: Supine abdomen: INDICATIONS: Ileus COMPARISON: 07/21/2019 FINDINGS: NG tube coiled in the upper stomach. Postoperative changes. Radiopaque drainage catheters. Bowel gas pattern unremarkable. Scattered small bowel gas without dilatation. Scattered stool and gas in colon. IMPRESSION: Scattered small bowel gas without dilatation.
[2019-07-22] MEDS: Enoxaparin Sodium 40 MG/0.4 ML SYRINGE SC SCH (09:45)
[2019-07-22] MEDS: D5 0.9% NS w/ 20 mEq KCl 1,000 ML IV SCH (09:45)
[2019-07-22] MEDS: Hydrocortisone Sod Succ/PF 100 mg/2 ml Vial IVP SCH (09:46)
[2019-07-22] MEDS: Polyethylene Glycol 3350 17 GM Packet PO SCH (09:46)
[2019-07-22] MEDS: Senokot 8.6 MG TAB PO SCH ×2 (09:47→21:18)
[2019-07-22] MEDS: Lisinopril 20 MG TAB PO SCH (09:47)
[2019-07-22] MEDS: Tamsulosin HCl 0.4 MG CAP PO SCH (09:47)
[2019-07-22] MEDS: Propranolol HCl 20 MG TAB PO SCH ×2 (09:47→21:18)
[2019-07-22] MEDS: Nicotine 7 MG PATCH TD SCH (09:48)
[2019-07-22 15:38] LABS: Potassium 3.4 mmol/L (3.5-5.1)
--- NOTE | 2019-07-22 22:21 | PRG ---
DATE OF SERVICE: 07/22/2019 SUBJECTIVE: The patient remains on the surgical floor. The patient is awake, alert, in no distress, lying in hospital bed. The patient is currently tolerating a clear liquid diet. The patient's NG tube was removed earlier today. The patient reports that he is feeling better and his abdomen is not swollen and does not have as much pain. The patient reports he had 3 bowel movements today and continues to pass gas. OBJECTIVE: VITAL SIGNS: Stable, the patient remains afebrile. GENERAL: Elderly male, lying in hospital bed, in no acute distress. PULMONARY: Equal chest rise and fall, no respiratory distress. ABDOMEN: Distended, soft, midline abdominal wound intact. Dressing clean, dry, and intact to inferior portion of the wound. No rigidity or peritoneal signs. EXTREMITIES: Moves all extremities. No gross edema. Positive distal pulses. ASSESSMENT: 1. Status post acute incarcerated ventral hernia with small bowel obstruction, status post repair. 2. Acute kidney injury, resolved. 3. Acute respiratory failure, resolved. 4. Ileus, stable. 5. Hyponatremia. 6. Hypophosphatemia, hypokalemia, hypomagnesium. PLAN: Continue supportive care. Continue a clear liquid diet as tolerated. Continue DONOVAN abdominal drains. Continue to encourage the patient to walk as much as possible and uses incentive spirometer. The plan has been discussed with the patient, who agrees. Job ID: [id number]
[2019-07-23 04:54] LABS: #Eosinphils 0.2 thou/uL (0.0-0.7); #Lymphocytes 3.1 thou/uL (1.20-3.40); #Monocytes 1.1 thou/uL (0.11-0.59); #Neutrophils 5.6 thou/uL (1.40-6.50); %Basophils 0.4 % (0.0-1.0); %Eosinophils 1.9 % (0.0-10.0); %Lymphocytes 30.7 % (21.0-51.0); Hemoglobin 10.4 g/dL (14.0-18.0); Mean Corpuscular HGB CONC 34.8 g/dL (32.0-36.0); Mean Corpuscular Hemoglobin 33.6 pg (27.0-31.0); Mean Corpuscular Volume 96.6 fL (78.0-98.0); Platelet Count 393 thou/uL (130-400); RBC Distribution Width 12.8 % (11.5-14.5); Red Blood Cell (RBC) Count 3.11 mill/uL (4.70-6.10); White Blood Cell (WBC) Count 9.9 thou/uL (4.8-10.8)
[2019-07-23 05:17] LABS: Anion Gap 9 mmol/L (10-20); BUN (Urea Nitrogen) 16 mg/dL (8.4-25.7); Calc. Creatinine Clearance 127 mL/min (70-130); Calcium 7.8 mg/dL (7.8-10.44); Carbon Dioxide 29 mmol/L (23-31); Chloride 102 mmol/L (98-107); Estimated GFR-MDRD Greater than 90; Glucose 104 mg/dL (80-115); Magnesium 1.9 mg/dL (1.6-2.6); Phosphorus 2.4 mg/dL (2.3-4.7); Potassium 3.1 mmol/L (3.5-5.1); Sodium 137 mmol/L (136-145)
[2019-07-23] MEDS: D5 0.9% NS w/ 20 mEq KCl 1,000 ML IV SCH ×2 (05:49→22:25)
[2019-07-23] MEDS: Acetaminophen 325 MG TAB PO SCH ×4 (06:10→23:37)
[2019-07-23] MEDS ORDERED: Magnesium 2 GM/50 ML 2 GM in Premix Bag 1 BAG IVPB SCH (07:15)
[2019-07-23] MEDS: Enoxaparin Sodium 40 MG/0.4 ML SYRINGE SC SCH (07:50)
[2019-07-23] MEDS: Polyethylene Glycol 3350 17 GM Packet PO SCH (07:51)
[2019-07-23] MEDS: Hydrocortisone Sod Succ/PF 100 mg/2 ml Vial IVP SCH (07:51)
[2019-07-23] MEDS: Tamsulosin HCl 0.4 MG CAP PO SCH (07:52)
[2019-07-23] MEDS: Lisinopril 20 MG TAB PO SCH (07:52)
[2019-07-23] MEDS: Senokot 8.6 MG TAB PO SCH ×2 (07:53→21:26)
[2019-07-23] MEDS: Propranolol HCl 20 MG TAB PO SCH ×2 (08:07→21:26)
[2019-07-23] MEDS: Nicotine 7 MG PATCH TD SCH (08:09)
--- NOTE | 2019-07-23 10:43 | PRG ---
DATE OF SERVICE: 07/23/2019 SUBJECTIVE: The patient was seen this morning, ambulating and sitting up in the chair in the hallway. He reported pain is well controlled and he had no acute events overnight. States that he has been tolerating his clear liquid diet since the NG tube was removed yesterday morning. Reports bowel movements both today and yesterday during the morning time, he is voiding without difficulties. At the time of my evaluation, the patient was requesting to eat regular foods. OBJECTIVE: VITAL SIGNS: Temperature 97.9, pulse 62, respirations are 18, oxygen saturation 95% on room air, and blood pressure 160/86. GENERAL: Elderly male, sitting up in chair with no signs of acute distress. PULMONARY: Equal chest rise and fall. Clear breath sounds bilaterally. No signs of acute respiratory distress. CARDIAC: Regular rate and rhythm. No murmurs, gallops, or rubs. GI: Abdomen is soft, nontender, and mildly distended. Small amount of drainage from surgical wound just inferior to the umbilicus. No signs of infection noted. EXTREMITIES: 2+ pulses in all extremities. No significant swelling noted. Gross motor and sensation, intact. NEUROLOGIC: GCS is 15. LABORATORY FINDINGS: White count 9.9, hemoglobin 10.9, hematocrit 30.0, and platelets are 393. Sodium 137, potassium 3.1, chloride 102, carbon dioxide 29, BUN 6, creatinine 0.89, glucose 104, phosphorus 2.4, and magnesium 1.9. DIAGNOSTIC FINDINGS: There are no new diagnostic findings to report. ASSESSMENT: 1. Status post acute incarcerated ventral hernia with small bowel obstruction, status post exploratory laparotomy, adhesiolysis, and total abdominal wall reconstruction with mesh. 2. Ileus, resolving. 3. Acute kidney injury, resolved. 4. Respiratory failure, resolved. 5. History of chronic back pain, hypertension, and ventral incisional hernia. 6. Acute hypokalemia, hypophosphatemia, and hypomagnesemia. PLAN: We will advance the patient's diet as tolerated. Continue DONOVAN drains. We will replace the patient's potassium, phosphorus, and magnesium. We will repeat electrolytes this afternoon and give p.o. replacements as necessary. Continue working with Physical and Occupational Therapy. Initially, a rehab screen was placed, but the patient may be able to be discharged home as he is ambulating independently in the hallway at this time. This patient was discussed with Dr. Ramos before this dictation. Job ID: [id number]
[2019-07-23 16:48] LABS: Magnesium 2.1 mg/dL (1.6-2.6); Phosphorus 2.3 mg/dL (2.3-4.7); Potassium 3.4 mmol/L (3.5-5.1)
[2019-07-23] MEDS ORDERED: PHOS-NAK 1 PKT PACK PO SCH (17:00)
[2019-07-23] MEDS: Potassium Chloride 20 MEQ TAB PO SCH (17:25)
--- NOTE | 2019-07-24 00:05 | PRG ---
DATE OF SERVICE: 07/23/2019 SUBJECTIVE: The patient remains on the surgical floor. The patient is awake, alert, in no distress, sitting up in the hospital bed. The patient is tolerating a regular diet at this time. The patient states that he feels much better. The patient continues to have bowel movements and passing gas. The patient voices no complaints or concerns at this time. OBJECTIVE: VITAL SIGNS: Stable, afebrile. GENERAL: Elderly male, sitting up in the hospital bed, in no acute distress. PULMONARY: Equal chest rise and fall, no acute distress. ABDOMEN: Soft, nontender, mildly distended. Mild drainage from surgical wound just inferior to umbilicus. No signs of infection. EXTREMITIES: Moves all extremities. No significant swelling. NEUROLOGIC: GCS 15. ASSESSMENT: 1. Status post acute incarcerated ventral hernia with small-bowel obstruction, status post exploratory laparotomy, adhesiolysis, total abdominal wall reconstruction with mesh. 2. Ileus, resolving. 3. Acute kidney injury, resolved. 4. Respiratory failure, resolved. 5. History of chronic back pain, hypertension, and ventral incisional hernia. Acute hypokalemia, hypophosphatemia, and hypomagnesium. PLAN: Continue regular diet as tolerated. Continue DONOVAN drains to abdomen. Continue to monitor electrolytes and replace as needed. Continue to have patient work with Physical and Occupational Therapy. Job ID: [id number]
[2019-07-24 05:28] LABS: Anion Gap 10 mmol/L (10-20); BUN (Urea Nitrogen) 13 mg/dL (8.4-25.7); Calc. Creatinine Clearance 133 mL/min (70-130); Carbon Dioxide 24 mmol/L (23-31); Chloride 104 mmol/L (98-107); Estimated GFR-MDRD Greater than 90; Glucose 115 mg/dL (80-115); Magnesium 1.9 mg/dL (1.6-2.6); Phosphorus 2.4 mg/dL (2.3-4.7); Potassium 3.4 mmol/L (3.5-5.1); Sodium 135 mmol/L (136-145)
[2019-07-24] MEDS: Acetaminophen 325 MG TAB PO SCH ×4 (05:42→23:45)
[2019-07-24] MEDS ORDERED: PHOS-NAK 1 PKT PACK PO SCH (07:30)
[2019-07-24] MEDS ORDERED: Magnesium 2 GM/50 ML 2 GM in Premix Bag 1 BAG IVPB SCH (07:30)
--- NOTE | 2019-07-24 08:29 | PRG ---
DATE OF SERVICE: 07/22/2019 SUBJECTIVE: The patient was seen this morning, sitting up in chair. He had just had a bowel movement. He reported significant relief after having the NG tube placed. NG tube had 2.5 L out in the past 24 hours. The patient reports he is still passing gas and is not belching as often. He is hungry and asking for food this morning. Reports abdominal pain is much better. OBJECTIVE: VITAL SIGNS: Temperature 98.3, pulse 72, respirations 14, oxygen saturation 99% on 2L nasal cannula, and blood pressure 134/75. GENERAL: Elderly male, sitting up in chair, with no signs of acute distress. PULMONARY: Equal chest rise and fall. Clear breath sounds bilaterally. No signs of acute respiratory distress. CARDIAC: Regular rate and rhythm. No murmur, gallops, or rubs. GI: Abdomen is soft, nontender, and mildly distended. EXTREMITIES: 2+ pulses in all extremities. Gross motor and sensation are intact. No significant swelling noted. CVS: GCS is 15. LABORATORY FINDINGS: Sodium 136, potassium 2.9, chloride 100, carbon dioxide 30, BUN 21, creatinine 0.85, and glucose 90. Phosphorus 3.1. Magnesium 2.0. BNP 78.6. DIAGNOSTIC FINDINGS: KUB completed this morning demonstrates scattered small bowel gas without dilation. ASSESSMENT: 1. Status post acute incarcerated ventral hernia with small-bowel obstruction, status post exploratory laparotomy, adhesiolysis, and total abdominal wall reconstruction with mesh. 2. Ileus, improved. 3. Acute kidney injury, resolved. 4. Respiratory failure, resolved. 5. History of chronic back pain, hypertension, and ventral incisional hernia. 6. Acute hypokalemia and hypophosphatemia. PLAN: The patient will complete a 4-hour NG tube clamp trial. If he does well with that, we will start him on a clear liquid diet. Otherwise, we will reconnect the NG tube back to suction. We changed his maintenance IV fluids to D5 normal saline at 20 an hour. The patient's potassium has been critically low over the past 2 days. We will check another potassium this afternoon and possibly replace his potassium again at that time. Of note, the patient's weight is back down near his dry weight at presentation. We will continue to advance his diet very conservatively. This patient was discussed with Dr. Ramos before this dictation. Job ID: [id number]
[2019-07-24] MEDS ORDERED: Furosemide 40 MG/4 ML VIAL SLOW IVP SCH (09:15)
[2019-07-24] MEDS: Enoxaparin Sodium 40 MG/0.4 ML SYRINGE SC SCH (09:47)
[2019-07-24] MEDS: Tamsulosin HCl 0.4 MG CAP PO SCH (09:49)
[2019-07-24] MEDS: Potassium Chloride 20 MEQ TAB PO SCH ×2 (09:51→17:20)
[2019-07-24] MEDS: Hydrocortisone Sod Succ/PF 100 mg/2 ml Vial IVP SCH (09:52)
[2019-07-24] MEDS: Lisinopril 20 MG TAB PO SCH (09:56)
[2019-07-24] MEDS: Propranolol HCl 20 MG TAB PO SCH ×2 (09:57→21:55)
[2019-07-24] MEDS: Senokot 8.6 MG TAB PO SCH ×2 (10:00→21:55)
[2019-07-24] MEDS: Furosemide 40 MG/4 ML VIAL SLOW IVP SCH ×2 (10:17→21:55)
--- NOTE | 2019-07-24 11:26 | PRG ---
DATE OF SERVICE: 07/24/2019 SUBJECTIVE: Mr. Urban is a 69-year-old man with history of chronic tobacco abuse, chronic hepatitis C, and chronic alcoholism. The patient is postoperative day #10 status post exploratory laparotomy, extensive adhesiolysis, and total abdominal wall reconstruction for acute incarcerated ventral incisional hernia with acute small-bowel obstruction. He is awake and alert today. He reports adequate pain control. He is tolerating general diet. Having normal bowel and urinary function. OBJECTIVE: VITAL SIGNS: Today include blood pressure of 146/77, pulse 75, respiratory rate is 20, temperature is 98 degrees Fahrenheit, and oxygen saturation is 95% on room air. HEART: Reveals regular rate and rhythm. LUNGS: Clear to auscultation bilaterally. Breathing, regular and nonlabored. ABDOMEN: Soft, moderately distended, but nontender to palpation. He has minimum drainage from the midline incisional wound which itself appears mostly healed. No gross purulence or induration present. Luke-Woodruff drain which is placed in the subcutaneous position returns left 15 mL and right 100 mL every 24 hours approximately. We will give the patient some diuretics today and monitor the output of the Luke-Woodruff drain over the last 24 hours. Anticipate discharge home tomorrow. Above findings and plan discussed with the patient who indicates understanding information given. I have answered his questions. Job ID: [id number]
[2019-07-24] MEDS: Nicotine 7 MG PATCH TD SCH (11:59)
[2019-07-24 16:01] VITALS: BMI 35.2
--- NOTE | 2019-07-25 03:42 | PRG ---
DATE OF SERVICE: 07/25/2019 SUBJECTIVE: The patient remains on the surgical floor. The patient is postop day #10 status post exploratory laparotomy, extensive adhesiolysis and a total abdominal wall reconstruction for acute incarcerated ventral incisional hernia and acute small-bowel obstruction. The patient is currently sleeping in no distress. OBJECTIVE: VITAL SIGNS: Stable, afebrile. ASSESSMENT: Postop exploratory laparotomy with extensive adhesiolysis and total abdominal wall reconstruction. PLAN: Continue diuretics today. Continue to monitor output of Luke-Woodruff drain. Possibly discharge home tomorrow. Job ID: [id number]
[2019-07-25] MEDS: Acetaminophen 325 MG TAB PO SCH (05:44)
[2019-07-25 06:19] LABS: Anion Gap 9 mmol/L (10-20); BUN (Urea Nitrogen) 12 mg/dL (8.4-25.7); Calc. Creatinine Clearance 125 mL/min (70-130); Calcium 8.1 mg/dL (7.8-10.44); Carbon Dioxide 25 mmol/L (23-31); Chloride 104 mmol/L (98-107); Estimated GFR-MDRD Greater than 90; Glucose 104 mg/dL (80-115); Magnesium 1.9 mg/dL (1.6-2.6); Phosphorus 2.3 mg/dL (2.3-4.7); Potassium 3.5 mmol/L (3.5-5.1); Sodium 134 mmol/L (136-145)
[2019-07-25] MEDS: Tamsulosin HCl 0.4 MG CAP PO SCH (07:55)
[2019-07-25] MEDS: Potassium Chloride 20 MEQ TAB PO SCH (07:55)
[2019-07-25] MEDS: Hydrocortisone Sod Succ/PF 100 mg/2 ml Vial IVP SCH (07:56)
[2019-07-25] MEDS: Lisinopril 20 MG TAB PO SCH ×2 (07:56→08:01)
[2019-07-25] MEDS: Enoxaparin Sodium 40 MG/0.4 ML SYRINGE SC SCH (07:57)
[2019-07-25] MEDS: Senokot 8.6 MG TAB PO SCH (07:58)
[2019-07-25] MEDS: Propranolol HCl 20 MG TAB PO SCH (08:01)
[2019-07-25] MEDS ORDERED: Acetaminophen 325 MG TAB PO PRN (09:00)
[2019-07-25 09:13] VITALS: TEMP 98.3
[2019-07-25 09:13] LABS: ALT (SGPT) 50 U/L (8-55); AST (SGOT) 63 U/L (5-34); Albumin 3.1 g/dL (3.4-4.8); Alkaline Phosphatase 81 U/L (40-150); Bilirubin, Direct 0.7 mg/dL (0.1-0.3); Bilirubin, Total 0.9 mg/dL (0.2-1.2); Protein, Total 6.7 g/dL (5.8-8.1)
[2019-07-25] MEDS: Nicotine 7 MG PATCH TD SCH (10:53)
[2019-07-25 14:05] VITALS: BP 148/84
--- NOTE | 2019-07-25 19:21 | DIS ---
DATE OF ADMISSION: 07/14/2019 DATE OF DISCHARGE: 07/25/2019 ADMISSION DIAGNOSES: High-grade small bowel obstruction, acute incarcerated ventral incisional hernia. DISCHARGE DIAGNOSES: Postop day 11, status post exploratory laparotomy, extensive adhesiolysis and total abdominal wall reconstruction; Acute respiratory failure, hypoxic, resolved; Abnormal electrolyte, resolved. CONSULTING PHYSICIAN: Dr. Genao, General Surgery. PROCEDURE: Exploratory laparotomy, extensive adhesiolysis, total abdominal wall reconstruction, and left subclavian central line. HOSPITAL COURSE: The patient is a 69-year-old male patient, coming to evaluation of abdominal pain. The patient sustained acute ventral incarcerated hernia and high-grade small bowel obstruction. He underwent exploratory laparotomy and abdominal wall reconstruction. Postop, the patient had a fluid shift, which caused him to have respiratory failure and difficult to wean his ventilation. His condition has been stable overtime. He has been able to discontinue the NG tube and he tolerated with regular diet. His condition has been improved overtime, and today, DONOVAN drain had been removed. His vital signs have been stable the past days. He is mobilized well. He walked around the floor, and he has been discharged today and will follow up with Dr. Genao in 1 week for staple removal. PHYSICAL EXAMINATION: GENERAL: The patient is lying down in bed comfortably with no acute distress. VITAL SIGNS: Stable. Blood pressure 140/77, heart rate 75, respiratory rate 20 , temperature 98, O2 saturation 95 on room air. HEART: Regular rate and rhythm. LUNGS: Clear bilaterally. ABDOMEN: Soft, moderately distended, nontender to palpation. Midline incision clean, clear, and intact. DONOVAN drain was removed bilateral per Dr. Genao this morning. EXTREMITIES: Neurovascularly intact x4. NEUROLOGIC: No focal neurology deficits. DISCHARGE CONDITION: Satisfactory. DISCHARGE DISPOSITION: Home DISCHARGE INSTRUCTIONS: The patient is to take medication as directed. The patient is to [id number] more than 20 pounds for 2 weeks. The patient is encouraged to walk regularly. The patient is to have a regular diet. Encouraged to stop smoking and drinking alcohol. Follow up with Dr. Genao in 1 week for staple removal. Job ID: [id number] MTDD
== END 2019-07-25 15:17 | disposition home or self-care (01) | DRG 335 ==
LOC: ERS 16:14 → SDC/OP 20:06 → CCU 23:28 → SJJU 07-19 16:33
PROVIDERS: ADMIT Surgery; ATTEND Surgery
PROC: 0WUF0JZ Supplement Abdominal Wall with Synthetic Substitute, Open Approach (ICD-10-PCS; principal; 2019-07-14)
PROC: 0DNW0ZZ Release Peritoneum, Open Approach (ICD-10-PCS; 2019-07-14)
PROC: 5A1955Z Respiratory Ventilation, Greater than 96 Consecutive Hours (ICD-10-PCS; 2019-07-14)
PROC: 0BH17EZ Insertion of Endotracheal Airway into Trachea, Via Natural or Artificial Opening (ICD-10-PCS; 2019-07-14)
PROC: 5A09457 Assistance with Respiratory Ventilation, 24-96 Consecutive Hours, Continuous Positive Airway Pressure (ICD-10-PCS; 2019-07-14)
PROC: 02HV33Z Insertion of Infusion Device into Superior Vena Cava, Percutaneous Approach (ICD-10-PCS; 2019-07-16)
DX: K43.0 Incisional hernia with obstruction, without gangrene (principal); J96.01 Acute respiratory failure with hypoxia; N17.9 Acute kidney failure, unspecified; K56.7 Ileus, unspecified; G89.29 Other chronic pain; M54.9 Dorsalgia, unspecified; I10 Essential (primary) hypertension; F17.210 Nicotine dependence, cigarettes, uncomplicated; R16.1 Splenomegaly, not elsewhere classified; E83.51 Hypocalcemia; E83.42 Hypomagnesemia; E86.1 Hypovolemia; E87.6 Hypokalemia; E83.39 Other disorders of phosphorus metabolism; K66.0 Peritoneal adhesions (postprocedural) (postinfection); Z88.0 Allergy status to penicillin; Z79.899 Other long term (current) drug therapy
CPT/HCPCS: 36415; 36416; 71045; 74018; 80048; 80076; 80185; 82533; 82805; 83735; 83880; 84100; 85025; 85610; 85730; 86850; 86900; 86901; 88302; 94002; 94003; 94640; 94660; 96374; 96375; C9113; J0131; J0694; J1650; J1720; J1940; J2001; J2250; J2270; J2405; J2704; J3010; J3475; J3480; J3490; J7050; J7070; J7620; P9045

== ENCOUNTER 2019-07-28 11:47 | Emergency (ER) | payer MEDICARE, OTHER ==
[2019-07-28 14:11] LABS: #Eosinphils 0.4 thou/uL (0.0-0.7); #Lymphocytes 2.2 thou/uL (1.20-3.40); #Monocytes 1.1 thou/uL (0.11-0.59); #Neutrophils 6.4 thou/uL (1.40-6.50); %Basophils 0.4 % (0.0-1.0); %Eosinophils 4.3 % (0.0-10.0); %Lymphocytes 21.4 % (21.0-51.0); %Monocytes 10.7 % (0.0-10.0); %Neutrophils 63.3 % (42.0-75.0); Hemoglobin 11.4 g/dL (14.0-18.0); Mean Corpuscular HGB CONC 34.3 g/dL (32.0-36.0); Mean Corpuscular Hemoglobin 33.7 pg (27.0-31.0); Mean Platelet Volume 6.2 fL (7.4-10.4); Platelet Count 564 thou/uL (130-400); RBC Distribution Width 12.9 % (11.5-14.5); Red Blood Cell (RBC) Count 3.39 mill/uL (4.70-6.10); White Blood Cell (WBC) Count 10.1 thou/uL (4.8-10.8)
[2019-07-28 14:32] LABS: ALT (SGPT) 43 U/L (8-55); AST (SGOT) 43 U/L (5-34); Albumin 3.1 g/dL (3.4-4.8); Alkaline Phosphatase 100 U/L (40-150); Anion Gap 7 mmol/L (10-20); BUN (Urea Nitrogen) 8 mg/dL (8.4-25.7); Bilirubin, Total 0.8 mg/dL (0.2-1.2); Calc. Creatinine Clearance 0 mL/min (70-130); Calcium 8.7 mg/dL (7.8-10.44); Carbon Dioxide 24 mmol/L (23-31); Chloride 104 mmol/L (98-107); Estimated GFR-MDRD Greater than 90; Glucose 96 mg/dL (80-115); Lipase 155 U/L (8-78); Potassium 3.3 mmol/L (3.5-5.1); Protein, Total 7.1 g/dL (5.8-8.1); Sodium 132 mmol/L (136-145)
== END 2019-07-28 15:40 | disposition home or self-care (01) ==
LOC: ERS 11:47
DX: T81.31XA Disruption of external operation (surgical) wound, not elsewhere classified, initial encounter (principal); I10 Essential (primary) hypertension; F17.210 Nicotine dependence, cigarettes, uncomplicated; Z79.891 Long term (current) use of opiate analgesic; Z79.899 Other long term (current) drug therapy
CPT/HCPCS: 36415; 80053; 83690; 85025; 99283